=== PATIENT | male | born 1995 | race Two or more races ===

== ENCOUNTER 2021-03-02 12:46 | Outpatient (REF) | payer OTHER, SELFPAY ==
[2021-03-02 13:12] LABS: COVID-19 Test Positive (Negative)
== END 2021-03-02 12:47 | disposition home or self-care (01) ==
LOC: HO.LAB 12:46
PROVIDERS: Visit Provider Internal Medicine
DX: Z20.822 Contact with and (suspected) exposure to COVID-19 (principal)
CPT/HCPCS: 87635; C9803